=== PATIENT | female | born 1970 | race Caucasian/White ===

== ENCOUNTER 2017-03-16 05:59 | Day surgery (SDC) | payer BC ==
[2017-03-15 10:17] LABS: BASOPHILS # (AUTO) 0.1 K/uL (0.00-0.22); BASOPHILS % (AUTO) 2.2 % (0.0-2.0); EOSINOPHILS # (AUTO) 0.2 K/uL (0-0.4); EOSINOPHILS % (AUTO) 3.1 % (0.0-4.0); HEMATOCRIT 36.9 % (36-48); HEMOGLOBIN 11.5 g/dL (12.0-16.0); LYMPHOCYTES # (AUTO) 1.7 K/uL (2.5-16.5); LYMPHOCYTES % (AUTO) 28.3 % (20.5-51.1); MEAN CORPUSCULAR HEMOGLOBIN 20 pg (27-31); MEAN CORPUSCULAR HGB CONC 31 g/dL (33-37); MEAN CORPUSCULAR VOLUME 65 fL (80-94); MONOCYTES # (AUTO) 0.3 K/uL (0.8-1.0); MONOCYTES % (AUTO) 5.8 % (1.7-9.3); NEUTROPHILS # (AUTO) 3.5 K/uL (1.8-7.7); NEUTROPHILS % (AUTO) 60.6 % (42.2-75.2); PLATELET COUNT (AUTO) 237 K/uL (140-450); RED BLOOD CELL COUNT(AUTO) 5.69 MIL/uL (4.20-5.40); RED CELL DISTRIBUTION WIDTH 14.4 % (11.6-13.7)
[2017-03-15 10:30] LABS: WHITE BLOOD COUNT (AUTO) 5.8 K/uL (4.8-10.8)
[2017-03-15 10:56] LABS: ANION GAP 4.8 (8-16); CARBON DIOXIDE 30.5 mmol/L (21-32); CREATININE 0.5 mg/dL (0.6-1.3); POTASSIUM 3.3 mmol/L (3.5-5.1)
[2017-03-15 11:02] LABS: TOTAL BILIRUBIN 0.5 mg/dL (0.0-1.0)
[2017-03-15 11:19] LABS: ALBUMIN 3.8 g/dL (3.4-5.0)
[~2017-03-16] VITALS: Ht 152.4 cm; Wt 59.9 kg
[2017-03-16] MEDS ORDERED: FERR325E14 PO (06:52)
[2017-03-16] MEDS ORDERED: BUPIVACAINE-MPF/EPI 0.25% 30 ML VIAL INJ ONE (06:52)
[2017-03-16] MEDS ORDERED: ONDANSETRON 4 MG/2 ML VIAL IVP ONE (07:35)
[2017-03-16] MEDS ORDERED: PROPOFOL 200 MG/20 ML VIAL IV ONE (07:35)
[2017-03-16] MEDS ORDERED: SEVOFLURANE 250 ML BTL INH ONE (07:35)
[2017-03-16] MEDS ORDERED: DEXAMETHASONE 4 MG/ML VIAL IVP ONE (07:35)
[2017-03-16] MEDS ORDERED: fentaNYL 0.05 MG/ML VIAL ONE (07:54)
[2017-03-16] MEDS ORDERED: MIDAZOLAM 2 MG/2 ML VIAL ONE (07:54)
[2017-03-16] MEDS ORDERED: NEOMYCIN/POLYMYXIN/BACITRACIN OIN 15 GM TUBE TP ONE (08:29)
[2017-03-16] MEDS ORDERED: NACL 0.9% 1,000 ML IV SCH (08:31)
[2017-03-16] MEDS ORDERED: MORPHINE SULFATE 2 MG/ML SYR IVP PRN ×2 (08:35→08:45)
[2017-03-16] MEDS ORDERED: HYDROmorphone 1 MG/ML AMP IVP PRN (08:35)
[2017-03-16] MEDS ORDERED: ONDANSETRON 4 MG/2 ML VIAL IV PRN (08:35)
[2017-03-16] MEDS ORDERED: MORPHINE SULFATE 4 MG/ML SYR IV PRN (08:35)
[2017-03-16] MEDS ORDERED: MORPHINE SULFATE 4 MG/ML SYR IVP PRN ×2 (08:45)
[2017-03-16] MEDS ORDERED: MIDAZOLAM 2 MG/2 ML VIAL IV ONE (08:45)
[2017-03-16] MEDS ORDERED: METOCLOPRAMIDE 10 MG/2 ML INJ VIAL IVP PRN (08:45)
== END 2017-03-16 10:20 | disposition home or self-care (01) ==
LOC: MDS 05:59 → MMU 05:59 → MDS 10:20
PROVIDERS: ATTEND Surgery
DX: N63.10 Unspecified lump in the right breast, unspecified quadrant (principal); Z98.890 Other specified postprocedural states
CPT/HCPCS: 19120; 36415; 71010; 80053; 81025; 85025; 93005; J0690; J1100; J2250; J2405; J2704; J3010; J3490; J7060; J7120